=== PATIENT | female | born 1980 | race Caucasian/White ===

== ENCOUNTER 2016-12-04 07:39 | Emergency (ER) | END 2016-12-04 10:29 | disposition home or self-care (01) | DX: O20.9 Hemorrhage in early pregnancy, unspecified (principal); R40.2412 Glasgow coma scale score 13-15, at arrival to emergency department; R10.2 Pelvic and perineal pain; Z3A.01 Less than 8 weeks gestation of pregnancy ==

== ENCOUNTER 2016-12-06 12:14 | Inpatient (IN) | payer BC ==
[~2016-12-06] VITALS: Ht 157.5 cm; Wt 75.0 kg
[~2016-12-06 12:14] MED LIST: ACET500C5 PO
--- NOTE | 2016-12-06 12:58 | ERD ---
ER Documentation Chief Complaint Date/Time DATE: 12/06/16 TIME: 12:57 Chief Complaint vaginal bleeding/clotting x today with 9/10 pelvic pain 7 weeks HPI 36 yo female who is with a history of 4 miscarriages comes in with vaginal bleeding ongoing for approximately 5 days with suprapubic pelvic cramping pain. She was seen here 2 days ago and was told that there is an intrauterine without cardiac activity. She has worsening pain and bleeding today. Her last menstrual period was on September 28, 2016. She denies any fevers or chills, dizziness or shortness of breath. ROS All systems reviewed and are negative except as per history of present illness. Medications Home Meds Active Scripts Acetaminophen* (Tylophen*) 500 Mg Capsule, 1 CAP PO Q6H Y for PAIN AND OR ELEVATED TEMP, #20 CAP Prov:VALENTINA MEIER. VETERINARY ATTENDANT 12/04/16 Allergies Allergies: Coded Allergies: No Known Allergy (Unverified , 12/06/16) PMhx/Soc History of Surgery: Yes (CS X 2 ) Anesthesia Reaction: No Hx Neurological Disorder: No Hx Respiratory Disorders: No Hx Cardiac Disorders: No Hx Psychiatric Problems: No Hx Miscellaneous Medical Probl: No Hx Alcohol Use: No Hx Substance Use: No Hx Tobacco Use: No Physical Exam Vitals Vital Signs Date Time Temp Pulse Resp B/P Pulse Ox O2 Delivery O2 Flow Rate FiO2 12/06/16 12:16 98.1 77 18 112/73 100 Physical Exam General: Well-developed, well-nourished. The patient appears in no acute distress. HEENT: Head is normocephalic, atraumatic. No scleral icterus. Neck: Supple. Nontender. Lungs: Clear to auscultation. Normal air movement. Heart: Regular rate and rhythm. S1 and S2 are normal. No murmurs, gallops, or rubs. Abdomen: Soft, suprapubic tenderness, no rebound pain, masses nondistended. Bowel sounds are normoactive. Extremities: No clubbing or cyanosis. Normal pulses. Moving extremities x 4. No weakness. Neurologic: Alert and oriented 3. No focal deficits. Skin: Normal turgor. No rash or lesions. Result Diagram: 12/06/16 1300 Results 24 hrs Laboratory Tests Test 12/06/16 13:00 White Blood Count 7.710^3/ul Red Blood Count 4.5910^6/ul Hemoglobin 12.4g/dl Hematocrit 38.1% Mean Corpuscular Volume 83.0fl Mean Corpuscular Hemoglobin 27.0pg Mean Corpuscular Hemoglobin Concent 32.5g/dl Red Cell Distribution Width 13.9% Platelet Count 61373^3/UL Mean Platelet Volume 9.7fl Neutrophils % 53.6% Lymphocytes % 38.0% Monocytes % 5.9% Eosinophils % 1.7% Basophils % 0.4% Nucleated Red Blood Cells % 0.0/100WBC Neutrophils # 4.210^3/ul Lymphocytes # 2.910^3/ul Monocytes # 0.510^3/ul Eosinophils # 0.110^3/ul Basophils # 0.010^3/ul Nucleated Red Blood Cells # 0.010^3/ul Urine Color YELLOW Urine Clarity SLIGHTLY CLOUDY Urine pH 5.0 Urine Specific [place] 1.027 Urine Ketones NEGATIVEmg/dL Urine Nitrite NEGATIVEmg/dL Urine Bilirubin NEGATIVEmg/dL Urine Urobilinogen NEGATIVEmg/dL Urine Leukocyte Esterase TRACELeu/ul Urine Microscopic RBC 163/HPF Urine Microscopic WBC 15/HPF Urine Squamous Epithelial Cells FEW/HPF Urine Mucus FEW/HPF Urine Hemoglobin 3+mg/dL Urine Glucose NEGATIVEmg/dL Urine Total Protein 1+mg/dl Beta HCG, Quantitative 16257.0mIU/ml Current Medications Medications (Trade) Dose Ordered Sig/Carlos Route PRN Reason Start Time Stop Time Status Last Admin Dose Admin Morphine Sulfate (morphine) 4 mg ONCE STAT IV 12/06/16 14:52 12/06/16 14:56 DC Ondansetron HCl 4 mg 4 mg ONCE STAT IV 12/06/16 14:52 12/06/16 14:56 DC Dextrose (D5W) 1,000 ml @ 500 mls/hr Q2H ONCE IV 12/06/16 15:00 12/06/16 16:59 Procedures/MDM 36-year-old female comes in with vaginal bleeding, and ultrasound was compared to 2 days ago and shows a failed . Patient's ultrasound was compared to the 1 2 days prior, there is no cardiac activity it was confirmed today. I spoke with her OB Dr. Arnold who agrees that the patient can benefit from a D&C, was advised to admit the patient to [facility]. Departure Diagnosis: Primary Impression: Missed Condition: Stable NICHOL JASSO PA-C Dec 06, 2016 12:58
[2016-12-06 13:08] LABS: ADD SCAN DIFF NO
[2016-12-06 13:15] LABS: BASOPHILS % 0.4 % (0.0-2.0); EOSINOPHILS # 0.1 10^3/ul (0.0-0.5); EOSINOPHILS % 1.7 % (0.0-7.0); HEMATOCRIT 38.1 % (37.0-47.0); HEMOGLOBIN 12.4 g/dl (12.0-16.0); LYMPHOCYTES # 2.9 10^3/ul (0.8-2.9); MEAN CORPUSCULAR HGB CONC 32.5 g/dl (32.0-37.0); MEAN PLATELET VOLUME 9.7 fl (7.4-10.4); MONOCYTE # 0.5 10^3/ul (0.3-0.9); MONOCYTES % 5.9 % (0.0-11.0); NEUTROPHIL # 4.2 10^3/ul (1.6-7.5); NEUTROPHILS % 53.6 % (39.0-77.0); PLATELET COUNT 297 10^3/UL (140-415); RED BLOOD COUNT 4.59 10^6/ul (4.20-5.40); RED CELL DISTRIBUTION WIDTH 13.9 % (11.5-14.5); WHITE BLOOD COUNT 7.7 10^3/ul (4.8-10.8)
[2016-12-06 13:30] LABS: ADD UMIC YES; UR ASCORBIC ACID NEGATIVE (NEGATIVE); UR BILIRUBIN (Dip) NEGATIVE (NEGATIVE); UR BLOOD (Dip) 3+ mg/dL (NEGATIVE); UR CLARITY SLIGHTLY CLOUDY (CLEAR); UR COLOR YELLOW (YELLOW); UR GLUCOSE (Dip) NEGATIVE (NEGATIVE); UR KETONES (Dip) NEGATIVE (NEGATIVE); UR LEUKOCYTE ESTERASE (Dip) TRACE Leu/ul (NEGATIVE); UR MUCUS FEW /HPF (NONE SEEN); UR NITRITE (Dip) NEGATIVE (NEGATIVE); UR RBC 163 /HPF (0-5); UR SPECIFIC GRAVITY (Dip) 1.027 (1.003-1.030); UR SQUAMOUS EPITHELIAL CELL FEW /HPF (FEW); UR TOTAL PROTEIN (Dip) 1+ mg/dl (NEGATIVE); UR UROBILINOGEN (Dip) NEGATIVE (NEGATIVE)
--- NOTE | 2016-12-06 14:09 | RADRPT ---
PROCEDURE: OB Ultrasound. CLINICAL INDICATION: Positive test. Vaginal bleeding. TECHNIQUE: Ultrasound of the pelvis was performed with transabdominal sonography in the axial and sagittal planes. COMPARISON: 12/04/2016. FINDINGS: There is a single intrauterine gestational sac. pole and yolk sac are present. There is no heart motion. [place]-rump length is 0.42 cm. Mean sac diameter is 1.75 cm. Menstrual age by ultrasound dates is 6 weeks 3 days. The right ovary appears normal measuring 3.8 x 2.2 x 2.4 cm. The left ovary appears normal measuring 3.6 x 1.9 x 2.4 cm. Color Doppler and pulsed Doppler sonography demonstrate normal flow to the ovaries. There is no other pelvic mass or free fluid. IMPRESSION: 1. Failed at 6 weeks 3 days menstrual age by ultrasound dates. RPTAT: QQ .Yfn Mantilla MD, Date Time Electronically viewed and signed by .Yfn Mantilla MD, on 12/06/2016 14:09 .R/
[2016-12-06] MEDS ORDERED: ONDANSETRON 4 MG INJ IV STA (14:52)
[2016-12-06] MEDS ORDERED: morphine 4 MG/ML VIAL IV STA (14:52)
[2016-12-06] MEDS ORDERED: DEXTROSE 5% 1,000 ML IV ONE (15:00)
[2016-12-06 15:19] LABS: INR 0.94; PROTIME 12.6 Sec (12.2-14.2)
[2016-12-06 15:20] LABS: PARTIAL THROMBOPLASTIN TIME 29.2 Sec (25.0-35.0)
[2016-12-06 15:29] LABS: CREATININE 0.59 mg/dl (0.44-1.00)
[2016-12-06 16:45] VITALS: TEMP 98.4
[2016-12-06 17:15] VITALS: BP 114/63; PULSE 71; RESP 16
[2016-12-06 18:19] VITALS: Ht 157.5 cm; Wt 75.0 kg
[2016-12-06] MEDS: LACTATED RINGER'S 1,000 ML IV SCH (18:28)
[2016-12-06] MEDS: morphine 4 MG/ML VIAL IV PRN (19:58)
[2016-12-06 20:05] VITALS: BP 107/65; RESP 18; RESP 89
[2016-12-06] MEDS: ONDANSETRON 4 MG INJ IV PRN (22:19)
[2016-12-07] VITALS (18 sets, daily range): BP systolic 90–119; BP diastolic 51–78; PULSE 68–89; RESP 11–18
[2016-12-07] MEDS: LACTATED RINGER'S 1,000 ML IV SCH ×4 (01:39→20:44)
[2016-12-07] MEDS: ONDANSETRON 4 MG INJ IV PRN ×2 (05:57→19:13)
[2016-12-07] MEDS: morphine 4 MG/ML VIAL IV PRN ×2 (05:58→19:15)
[2016-12-07] MEDS ORDERED: MEPERIDINE 25 MG INJ IV PRN (16:30)
[2016-12-07] MEDS ORDERED: ONDANSETRON 4 MG INJ IV PRN (16:30)
[2016-12-07] MEDS ORDERED: OXYCODONE/ACETAMINOPHEN (5/325) TAB PO PRN ×2 (16:30)
[2016-12-07] MEDS ORDERED: PROCHLORPERAZINE 10 MG INJ IV PRN (16:30)
[2016-12-07] MEDS ORDERED: FENTAnyl 50 MCG/ML VIAL IV PRN (16:30)
[2016-12-07] MEDS ORDERED: morphine (1 MG/ML) 10ML SYRINGE IV PRN ×2 (16:30)
[2016-12-07] MEDS ORDERED: DIPHENHYDRAMINE 50 MG INJ IV PRN (16:30)
[2016-12-07] MEDS ORDERED: MIDAZOLAM 1 MG/ML 2 ML INJ ONE (16:43)
[2016-12-07] MEDS ORDERED: LIDOCAINE 2% (SDV) 5 ML INJ ONE (16:43)
[2016-12-07] MEDS ORDERED: FENTAnyl 50 MCG/ML VIAL ONE (16:44)
[2016-12-07] MEDS ORDERED: PROPOFOL 20 ML ONE (16:44)
[2016-12-07] MEDS ORDERED: ONDANSETRON 4 MG INJ ONE (17:11)
[2016-12-07] MEDS ORDERED: METOCLOPRAMIDE 10 MG INJ ONE (17:11)
[2016-12-07] MEDS ORDERED: CEFAZOLIN 1 GM INJ ONE (17:13)
[2016-12-07] MEDS ORDERED: KETOROLAC 30 MG INJ ONE (17:22)
[2016-12-07] MEDS ORDERED: SILVER NITRATE SWAB ONE (17:30)
--- NOTE | 2016-12-07 18:27 | OPR ---
Date/Time of Note Date/Time of Note DATE: 12/07/16 TIME: 18:24 Operative Report Preoperative Diagnosis Missed Postoperative Diagnosis Same Operation/Procedure Performed Dilation and Curettage Surgeon: PARUL MONDRAGON MD Anesthesia: general Estimated Blood Loss: 10 - 50 ml's Specimens Products of Conception Complications: None PARUL MONDRAGON MD Dec 07, 2016 18:26
[2016-12-08] MEDS: morphine 4 MG/ML VIAL IV PRN (00:23)
[2016-12-08] MEDS: ONDANSETRON 4 MG INJ IV PRN (00:23)
[2016-12-08] MEDS: LACTATED RINGER'S 1,000 ML IV SCH ×3 (02:30→10:30)
[2016-12-08 03:00] VITALS: BP 101/58; PULSE 80; RESP 18
[2016-12-08 07:58] VITALS: BP 101/59; RESP 18
--- NOTE | 2016-12-08 08:37 | PREOPHP ---
DATE OF ADMISSION: 12/06/2016 CHIEF COMPLAINT: Vaginal bleeding and pelvic pain. HISTORY OF PRESENT ILLNESS: A 36-year-old 6 para 2 AB 3, who presented to the emergency department with complaint of vaginal bleeding and pelvic pain. Workup in the emergency included an obstetrical ultrasound, which revealed an intrauterine of 6 weeks and 3 days with no heart motion, with the impression of failed at 6 weeks and 3 days. PAST MEDICAL HISTORY: Unremarkable. PAST SURGICAL HISTORY: section. ALLERGIES: THERE ARE NO KNOWN ALLERGIES. FAMILY HISTORY: Noncontributory. PHYSICAL EXAMINATION: VITAL SIGNS: The patient is afebrile. Vital signs stable. HEAD NECK AND CHEST: Within normal limits ABDOMEN: Soft, nontender, nondistended. PELVIC: Cervix is closed. EXTREMITIES AND NEUROLOGIC: Within normal limits. IMPRESSION: Missed at 6 weeks and 3 days by ultrasound. PLAN: Admit. Intravenous analgesia. The patient was counseled about her options of management with dilation and curettage or expected management while awaiting for spontaneous passage of products of conception. After counseling, patient said that she desired to have a dilation and curettage. Dictated By: Romulo Rodriguez MD /vicki/ruperto /Document#: [id number] ROBIN
[2016-12-08] MEDS ORDERED: IBUPROFEN 400 MG TAB NGT PRN (11:30)
--- NOTE | 2016-12-08 13:22 | DS ---
Date/Time of Note Date/Time of Note DATE: 12/08/16 TIME: 13:19 Discharge Summary Admission/Discharge Info Admit Date/Time Dec 06, 2016 at 14:55 Discharge Date/Time 12/08/2016 Discharge Diagnosis Missed Patient Condition: Stable Procedures Dilation and Curettage Hx of Present Illness Vaginal bleeding and pelvic pain. Hospital Course Dilation and curettage done. Post op course uneventful. Home Meds Discontinued Scripts Acetaminophen* (Tylophen*) 500 Mg Capsule, 1 CAP PO Q6H Y for PAIN AND OR ELEVATED TEMP, #20 CAP Prov:VALENTINA MEIER NP 12/04/16 Follow-up Plan In [address] Mondragon. Primary Care Provider Not On Staff Doctor Time spent on discharge: < 30 minutes PARUL MONDRAGON MD Dec 08, 2016 13:22
--- NOTE | 2016-12-11 15:47 | OPR ---
DATE OF OPERATION: 12/07/2016 PREOPERATIVE DIAGNOSIS: Missed . POSTOPERATIVE DIAGNOSIS: Missed . OPERATION PERFORMED: Dilation and curettage. SURGEON: Romulo Rodriguez MD ANESTHESIA: General. ANESTHESIOLOGIST: Dr. Strauss. PROCEDURE: The patient was taken to the operating room and placed on the operating room table in supine position. After adequate general anesthesia was given, the patient was placed in dorsolithotomy position. The area was prepped and draped in usual sterile fashion. Speculum was placed inside the vagina, and tenaculum was used to grasp the anterior lip of the cervix. Using cervical dilators, the cervical os was dilated to a size 8. A size 8 cannula was placed inside the cervical canal and, using suction machine, products of conception were evacuated from the uterine cavity. Next, a sharp curet was used to perform sharp curettage. After the uterine cavity was assured to be empty, all the instruments were removed. Adequate hemostasis was assured. The patient tolerated the procedure well. The patient was awakened from anesthesia and transferred to recovery room in stable condition. Estimated blood loss 50 mL. All counts were correct. Dictated By: Romulo Rodriguez MD /fnt/ec /Document#: [id number]
== END 2016-12-08 14:08 | disposition home or self-care (01) | DRG 770 ==
LOC: FTE 12:14 → MS2 14:55
PROVIDERS: ADMIT Obstetrics & Gynecology; ATTEND Obstetrics & Gynecology
PROC: 10D17ZZ Extraction of Products of Conception, Retained, Via Natural or Artificial Opening (ICD-10-PCS; principal; 2016-12-07 16:45)
DX: O02.1 Missed abortion (principal)
CPT/HCPCS: 36415; 76801; 80048; 81001; 84702; 85025; 85610; 85730; 88305; 96374; 96375; J0690; J1885; J2250; J2270; J2405; J2765; J3010; J7120